=== PATIENT | male | born 1975 | race Caucasian/White ===

== ENCOUNTER 2024-04-30 19:50 | Emergency (ER) | payer BC, SELFPAY ==
[2024-04-30 19:52] VITALS: BP 101/98; PULSE 106; RESP 17; TEMP 36.2; O2SAT 98; BMI 19.8
--- NOTE | 2024-04-30 20:22 | EX.ED.DYSGE1 ---
HPI History of Present Illness Chief Complaint: Nausea/Vomiting Informant: patient and parent Narrative Narrative: 49-year-old male presenting to the emergency department with his parents whom he lives with in [place]. He states in 2021 he was diagnosed with squamous cell carcinoma of the tongue and underwent surgery at [facility]. States he had chemo and radiation there. He was working in [place] when a sore redeveloped on his tongue and he was seen by an ENT there and had a biopsy and states that his cancer has returned. For the past week he has had significant nausea and vomiting. Has not been able to keep anything down. Nothing is different today as compared to yesterday or the day before. However he came to [facility] this Friday night to get treated for his new symptoms and to try to figure out how he is going to proceed with his oncologic care. He is not sure how much he wants done. He is unsure of the exact cause of his carcinoma. He states that he continues to smoke. He notes a burning-like sensation in his lower mid chest extending into the epigastrium. He states this seems to get better with water but then he vomits. [facility] Medical History (Updated 04/30/24 @ 23:[address] Jaden Day, ) Squamous cell carcinoma of tongue Home Medications ?Medication ?Instructions ?Recorded ?Last Taken ?Type pantoprazole 40 mg tablet,delayed 40 mg PO DAILY #30 tabs 04/30/24 Unknown Rx release (Protonix) promethazine 25 mg tablet 25 mg PO TID PRN nausea and 04/30/24 Unknown Rx vomiting #20 tabs Allergy/AdvReac Type Severity Reaction Status Date / Time No Known Allergies Allergy Verified 04/30/24 19:51 Surgical History S/P percutaneous endoscopic gastrostomy (PEG) tube placement Social History Smoking Status: Current every day smoker tobacco type: cigarettes ROS ROS ED Constitutional Constitutional ED: Denies chills, fever(s) or weight loss Eyes Eyes: Denies change in vision or diplopia ENT ENT ED: Reports other Details: Tongue cancer see HPI ; Denies ear pain, rhinorrhea or sore throat Cardiovascular Cardiovascular: Reports chest pain; Denies orthopnea, palpitations or racing heartbeat Respiratory/Chest Respiratory/Chest: Denies cough, dyspnea or orthopnea Gastrointestinal Gastrointestinal: Reports abdominal pain, constipation, nausea and vomiting; Denies diarrhea Genitourinary Genitourinary ED: Denies dysuria, hematuria or urinary frequency Musculoskeletal Musculoskeletal: Denies arthralgias or myalgias Integumentary Denies abscess or rash Neurologic Neurologic: Denies headache(s) or weakness Psychiatric Psychiatric: Denies anxiety, depression, suicidal ideation or suicidal thoughts Endocrine Endocrinology: Denies polydipsia, polyphagia or polyuria Allergic/Immunologic Allergic/Immunologic ED: Denies mouth swelling, tongue swelling or urticaria EXAM Physical Exam Const Vital Signs: 04/30/24 19:52 04/30/24 22:00 Temperature 97.1 F L 97.7 F L Temperature Source Temporal Oral Pulse Rate 106 H 74 Respiratory Rate 17 15 Blood Pressure 101/98 H 108/77 Blood Pressure Mean 99 87 Pulse Ox 98 98 Oxygen Delivery Method Room Air Positive well nourished and well developed General Appearance ED: well developed HEENT Reports normocephalic, head/scalp atraumatic and moist mucous membranes Eyes PERRL and EOMs intact bilaterally Neck no lymphadenopathy, supple and no JVD Resp normal respiratory effort and clear to auscultation bilaterally Cardio regular rate, regular rhythm and no murmurs GI normal to inspection, nondistended, normoactive bowel sounds and non-tender Inspection: Negative for abdominal distention Auscultation: normoactive bowel sounds Palpation: soft; Negative for tender, guarding, mass or rebound tenderness present Back/Spine no CVA tenderness and normal ROM Extremity normal to inspection General Extremety ED: Negative for edema General Extremity: Negative for edema Neuro oriented x3 and CN's II-XII intact bilaterally Sensorium / Orientation: alert Motor Exam: strength 5/5 throughout Psych mental status grossly normal Mood & Affect: Negative for depressed or tearful Skin no rashes or lesions noted and no wounds MDM MDM MDM Narrative Medical decision making narrative: Differential diagnosis includes but not limited to reflux metastatic cancer liver dysfunction pancreatitis bowel obstruction esophageal perforation gastric outlet obstruction White count 5.3 hemoglobin 16.7 platelet count 226. BMP shows a sodium of 132 potassium 3.4 chloride 92 anion gap of 8 BUN of 10 creatinine 0.83. Magnesium is normal 1.9 total bilirubin is 1.8 with a direct bilirubin 0.75 AST 184 ALT 191 alk phos 162 normal lipase. Urinalysis 0-5 white cells 0-5 red cells red bacteria 0-[address] of the soft tissue of the neck chest abdomen pelvis with IV contrast demonstrates postsurgical changes. Gallbladder ultrasound shows hepatic steatosis. Patient's been resting comfortably. He received morphine and Ativan and Zofran as well as IV fluids. I discussed with him that he needs needs to most likely follow-up with his ENT and oncologist at the [facility] in [place]. I think that this is the most likely way for him to get expeditious care. He states he got his biopsy results from [place] [facility] 2 to 3 weeks ago and has been deciding whether or not he wants to do anything with this. I do wonder if there is a psychosomatic component to this vomiting. I do not know to what degree the elevated liver enzymes is Clindacin as to his vomiting. Better not seen pancreatitis am not seeing an obvious ductal dilatation or obstruction. I will write for some Phenergan. As far as his burning lower chest pain I think that is most likely reflux related/esophagitis and I will place him on some Protonix. I advised him that he may need to see gastroenterology. He is comfortable with this plan. His parents were present for the discussion. They understand that he can certainly follow-up with oncology here locally at the [facility] center but I think he needs to have his ENT on board from [place] and have a plan of treatment before he would want to establish here for potential treatments as it is not clear what his staging is or what the recommendation for treatments will. The abdomen continues to be pretty benign. History & Record Review Discussion w/independent historian: Patient and Family Lab Data Attestation: I reviewed the patient's lab results. Labs: Laboratory Results - last 24 hr 04/30/24 20:10 WBC 5.3 RBC 4.56 L Hgb 16.7 H Hct 46.6 MCV 102.2 H MCH 36.6 H MCHC 35.8 RDW Std Deviation 51.9 H RDW Coeff of Diane 13.6 Plt Count 226 MPV 9.8 Immature Gran % (Auto) 0.400 Neut % (Auto) 69.3 Lymph % (Auto) 15.0 L Isabella % (Auto) 14.3 H Eos % (Auto) 0.6 Baso % (Auto) 0.4 Absolute Neuts (auto) 3.7 Absolute Lymphs (auto) 0.79 L Nucleated RBC % 0 Sodium 132 L Potassium 3.4 L Chloride 92 L Carbon Dioxide 32.0 Anion Gap 8 BUN 10 Creatinine 0.83 Estim Creat Clear Calc 95.32 Est GFR (MDRD) Af Amer 126 Est GFR (MDRD) Non-Af 104 BUN/Creatinine Ratio 12.0 Glucose 96 Calcium 10.0 Magnesium 1.9 Total Bilirubin 1.80 H Direct Bilirubin 0.75 H AST 184 H ALT 191 H Alkaline Phosphatase 162 H Total Protein 8.0 Albumin 3.8 Globulin 4.2 Lipase 22 Urine Color Misti Urine Clarity Sl. Cloudy Urine pH 6.5 Ur Specific [place] 1.015 Urine Protein 30 H Urine Glucose (UA) Normal Urine Ketones 15 H Urine Occult Blood 10 H Urine Nitrite Positive H Urine Bilirubin 3 H Urine Urobilinogen 12 H Ur Leukocyte Esterase 25 H Urine RBC 0-5 SEEN Urine WBC 0-5 SEEN Ur Squamous Epith Cells 0-5 SEEN Amorphous Sediment 1+ URATE Urine Bacteria RARE Urine Mucus 1+ Radiography Diagnostic Testing: Clinical Impression(s) from Imaging Studies Gallbladder Ultrasound 04/30/24 20:54 IMPRESSION: No acute sonographic abnormality is demonstrated in the right upper quadrant. Hepatic steatosis. Electronically Signed: Jet Messer MD at 22:10 EDT , Chest/Abdomen/Pelvis CT 04/30/24 21:50 IMPRESSION: No acute findings in the chest, abdomen, or pelvis. Mild paraseptal emphysema. Colonic diverticulosis without diverticulitis. Electronically Signed: Jet Messer MD at 22:36 EDT , Soft Tissue Neck CT 04/30/24 21:50 IMPRESSION: No acute abnormality. Postsurgical changes in the oral cavity and left neck. Electronically Signed: Jet Messer MD at 22:30 EDT , Discharge Plan Triage Chief Complaint: Nausea/Vomiting ED Provider: Jaden Day Dx/Rx/DC Orders Clinical Impression: Vomiting, Elevated liver enzymes, Squamous cell cancer of tongue, Acute dehydration Instructions: ED Dehydration (Adult), ED Vomiting (Adult) Prescriptions: New pantoprazole [Protonix] 40 mg tablet,delayed release (DR/EC) 40 mg PO DAILY Qty: 30 0RF promethazine 25 mg tablet 25 mg PO TID PRN (Reason: nausea and vomiting) Qty: 20 0RF Primary Care Provider: Care Physician,No Primary Referrals: Jazzy Saba MD [Med Staff - Active Staff] - (For local [facility] oncology) Care Physician,No Primary [Primary Care Provider] - Activity Restrictions/Additional Instructions: Per your report your recent tongue biopsy shows recurrent tongue cancer. I strongly recommend you contact your [facility] ENT and oncologist and let them know about this. Your liver enzymes were mildly elevated tonight. I do not see a definitive reason as to why this is. You may need to see a consumer affairs manager. Given your pain I think is most likely due to the vomiting and some reflux and we will be placing you on an antacid medication in addition to intermittent nausea medicine. If you are worsening you may return to this emergency department for repeat evaluation. Print Language: Macedonian Disposition Disposition: Home, Self Care
[2024-04-30 20:32] LABS: Absolute Lymphocyte Count 0.79 X10^3/uL (0.83-4.51); Absolute Neutrophil Count 3.7 X10^3/uL (2.0-7.7); Basophil# 0.02 X10^3/uL; Basophil% 0.4 % (0-1); Eosinophil# 0.03 X10^3/uL; Eosinophils% 0.6 % (0-5); Hematocrit 46.6 % (40-54); Hemoglobin 16.7 g/dL (13.0-16.5); Lymphocyte # 0.79 X10^3/ul (0.83-4.51); Mean Corp Hgb Conc 35.8 g/dL (32-36); Mean Corpuscular Hgb 36.6 pg (27.0-32.0); Mean Corpuscular Volume 102.2 fL (80-94); Mean Platelet Vol. 9.8 fl (6.2-12.0); Monocyte# 0.75 X10^3/uL; Monocyte% 14.3 % (0-10); NRBC Flagged by Analyzer 0 % (0-5); Neutrophil # 3.65 X10^3/uL (2.7-7.7); Neutrophil % 69.3 % (47-70); Platelet Count 226 K/mm3 (150-450); RBC Distribution Width CV 13.6 % (11.6-14.6); RBC Distribution Width SD 51.9 fl (35.1-43.9); Red Blood Count 4.56 M/mm3 (4.6-6.2); White Blood Count 5.3 K/mm3 (4.4-11.0)
[2024-04-30] MEDS: Ondansetron 4 MG/2 ML Vial IV (20:33)
[2024-04-30 20:34] LABS: Color, Urine Amber (Yellow); Glucose, Dipstick Normal (Normal); Ketone-Dipstick 15 mg/dl (Negative); Leukocyte Esterase-Dipstick 25 /ul (Negative); Nitrite-Dipstick Positive (Negative); Occult Blood-Urine 10 /ul (Negative); Protein-Dipstick 30 mg/dl (Negative); Specific Gravity, Urine 1.015 (1.002-1.030); Urine Clarity Sl. Cloudy (Clear); Urine Urobilinogen 12 mg/dl (Normal); Urine pH 6.5 (5.0 - 8.0)
[2024-04-30] MEDS: LORazepam 2 MG/ML Syringe 1 MG IV (20:34)
[2024-04-30] MEDS: 0.9% Normal Saline (1000mL) 1,000 ML 1000 ML IV ×2 (20:37→21:47)
[2024-04-30 20:41] LABS: Urine Bilirubin Dipstick 3 mg/dL (Negative)
[2024-04-30 20:43] LABS: Amorphous Sediment 1+ URATE; Bacteria RARE /hpf (None Seen); Mucous, Urine 1+ /hpf (<or=2+); Red Blood Cells-Urine 0-5 SEEN /hpf (0-5); Squamous Epithelial Cells - UA 0-5 SEEN /hpf (0-5); White Blood Cells 0-5 SEEN /hpf (0-5)
[2024-04-30 20:49] LABS: AST(SGOT) 184 U/L (15-37); Alanine Aminotransfer ALT/SGPT 191 U/L (16-61); Albumin, Serum 3.8 g/dL (3.2-5.0); Alkaline Phosphatase 162 U/L (45-117); Anion Gap 8 (5-15); BUN 10 mg/dL (7-18); Bilirubin, Direct 0.75 mg/dL (0.00-0.30); Chloride 92 mmol/L (98-107); Creatinine, Serum 0.83 mg/dL (0.70-1.30); EST Glomerular Filtration Rate 104 mL/min (>60); Est Glom Filt Rate - Afr Amer 126 mL/min (>60); Estimated Creatinine Clearance 95.32 ml/min; Globulin 4.2 g/dL (2.2-4.2); Glucose 96 mg/dL (74-106); Lipase 22 U/L (13-75); Magnesium 1.9 mg/dL (1.6-2.6); Potassium 3.4 mmol/L (3.5-5.1); Sodium Level 132 mmol/L (136-145)
--- NOTE | 2024-04-30 20:54 | US_ITS ---
INDICATION: N/V X 1 WEEK, PAIN, ELEVATED LFTS EXAMINATION: Ultrasound US Gallbladder (abdomen limited) TECHNIQUE: Moody scale and color doppler imaging was performed of the right upper quadrant. COMPARISON: No relevant prior comparison study available FINDINGS: LIVER: The liver is normal in size and shape with moderately increased echogenicity. No focal hepatic lesion. No intrahepatic biliary ductal dilatation. There is no free fluid. GALLBLADDER AND BILIARY TREE: Normally distended gallbladder. No shadowing gallstone, pericholecystic fluid or gallbladder wall thickening. The proximal common bile duct measures 0.2 cm, which is within normal limits for the patient''s age. Songraphic Alcantara''s sign: Negative. PANCREAS: No focal abnormality is demonstrated in the pancreas. No pancreatic ductal dilatation. RIGHT KIDNEY: The right kidney measures 11.8 cm. No hydronephrosis or nephrolithiasis. No renal mass. US/Gallbladder IMPRESSION: No acute sonographic abnormality is demonstrated in the right upper quadrant. Hepatic steatosis. Electronically Signed: Jet Messer MD at 22:10 EDT ,
--- NOTE | 2024-04-30 21:50 | CT_ITS ---
INDICATION: tongue cancer EXAMINATION: CT NECK WITH CONTRAST - CT Soft Tissue Neck W/ Contrast Injection TECHNIQUE: Helically acquired images were obtained of the neck following IV contrast. The protocol utilizes one or more of the following dose reduction techniques: automated exposure control, adjustment of mA and/or kV according to patient size,and/or use of iterative reconstruction technique. IV Contrast dosage and agent: 100 mL of Isovue 300 RADIATION DOSAGE (If Supplied By Facility): CTDIvol = ( 9.40 ) mGy, DLP = ( 262.96 ) mGycm COMPARISON: No relevant prior comparison study available FINDINGS: NASOPHARYNX: Unremarkable. SUPRAHYOID NECK: Surgical clips in the oral cavity. Clips extend into the left neck. There is no mass identified. No inflammatory changes. INFRAHYOID NECK: Unremarkable larynx, hypopharynx, and supraglottis. THYROID: No focal lesions. SALIVARY GLANDS: The parotid glands are normal. Normal right submandibular gland. The left submandibular gland may be absent. LYMPH NODES: No cervical or supraclavicular lymphadenopathy. VASCULAR STRUCTURES: Unremarkable. VISUALIZED PORTIONS OF THE ORBITS, PARANASAL SINUSES, MASTOID AIR CELLS AND SKULL BASE: Unremarkable. BONES: Straightening of the cervical lordosis. Disc space narrowing at C5-C6 with small endplate osteophytes. THORACIC INLET: Paraseptal emphysema at the lung apices. CT/Soft Tissue Neck WITH Contrast IMPRESSION: No acute abnormality. Postsurgical changes in the oral cavity and left neck. Electronically Signed: Jet Mesesr MD at 22:30 EDT ,
--- NOTE | 2024-04-30 21:50 | CT_ITS ---
STUDY: CT CHEST, ABDOMEN T PELVIS WITH CONTRAST REASON FOR EXAM: Male, 49 years old. vomiting chest pain RADIATION DOSAGE (If Supplied By Facility): CTDIvol = ( 11.16 ) mGy, DLP = ( 743.11 ) mGycm TECHNIQUE: Transaxial imaging was performed following intravenous administration of IV 100mL Isovue-300. Multiplanar coronal and sagittal images were reformatted. Individualized dose optimization techniques were used for this CT. COMPARISON: No relevant prior comparison study available FINDINGS: CHEST Lungs/pleura: The central airways are patent. No consolidation. No pulmonary nodule or mass. There is paraseptal emphysema seen in the upper lobes, greatest at the apices. There is no demonstrated pleural abnormality. No pneumothorax. Mediastinum: Normal heart and pericardium. Normal mediastinum. Normal hilar regions. Normal appearance of the pulmonary arteries. Normal aorta arch and descending thoracic aorta. Chest wall: No axillary lymphadenopathy or chest wall mass. ABDOMEN/PELVIS Liver/gallbladder/biliary tree: The liver is normal in size and shape. There is decreased attenuation of the liver consistent with steatosis. There is no mass or intrahepatic biliary ductal dilatation. Normal gallbladder and extrahepatic biliary system. Pancreas: Normal pancreas. Spleen: Normal in size. No splenic lesion. Adrenal glands: Normal bilateral adrenal glands. Kidneys: The right kidney is normal in size, shape, and position. No hydronephrosis or nephrolithiasis. The left kidney is normal in size, shape, and position. No hydronephrosis or nephrolithiasis. GI tract: Normal visualized stomach. Normal small intestine. Colonic diverticulosis without evidence of diverticulitis. No wall thickening or inflammation. The appendix is visualized and appears normal. Lymphovascular: Normal caliber abdominal aorta with minimal atherosclerotic calcification. Normal inferior vena cava. Normal retroperitoneum. No retroperitoneal or mesenteric lymphadenopathy. Abdominal wall: Normal abdominal wall. Bladder: Normal urinary bladder. Pelvic viscera: There is no pelvic fluid. There is no pelvic lymphadenopathy or mass lesion. OSSEOUS STRUCTURES Mild degenerative changes of the hips and spine. No acute or suspicious osseous abnormality. CT/CT Chest, Abd, Pel w/Contrast IMPRESSION: No acute findings in the chest, abdomen, or pelvis. Mild paraseptal emphysema. Colonic diverticulosis without diverticulitis. Electronically Signed: Jet Messer MD at 22:36 EDT ,
[2024-04-30 22:00] VITALS: BP 108/77; PULSE 74; RESP 15; TEMP 36.5; O2SAT 98
[2024-05-01] VITALS: PULSE 82; RESP 16; O2SAT 98
[2024-05-01 00:13] VITALS: BP 108/62; PULSE 68; RESP 18; TEMP 36.4; O2SAT 98
== END 2024-05-01 00:14 | disposition home or self-care (01) ==
PROVIDERS: Emergency Provider Emergency Medicine; Visit Provider Emergency Medicine
DX: R11.2 Nausea with vomiting, unspecified (principal); C02.9 Malignant neoplasm of tongue, unspecified; E86.0 Dehydration; F17.210 Nicotine dependence, cigarettes, uncomplicated; Z92.21 Personal history of antineoplastic chemotherapy; Z92.3 Personal history of irradiation; R74.01 Elevation of levels of liver transaminase levels
CPT/HCPCS: 70491; 71260; 74177; 76705; 80048; 80076; 81001; 83690; 83735; 85025; 96361; 96374; 96375; 99283; J7030; Q9967; A4216; J2405